=== PATIENT | male | born 1995 | race Caucasian/White ===

== ENCOUNTER 2017-07-03 16:46 | Outpatient (CLI) | payer OTHER | END 2017-07-03 16:47 | disposition critical access hospital (66) | LOC: EMS 16:46 | PROVIDERS: ATTEND Surgery | DX: R06.02 Shortness of breath (principal); R11.10 Vomiting, unspecified; L50.9 Urticaria, unspecified | CPT/HCPCS: A0425; A0427 ==

== ENCOUNTER 2017-07-03 17:13 | Emergency (ER) | payer OTHER ==
[2017-07-03] MEDS ORDERED: predniSONE 20 MG TABLET PO STA (17:17)
--- NOTE | 2017-07-03 17:22 | ED Physician Documentation ---
History of Present Illness - Stated complaint Stated Complaint: ALLERGIC RX/ ETOH - Chief complaint Chief Complaint: Allergic Rx - History obtained from History obtained from: Patient, Family, EMS - History of Present Illness Timing: How many hours ago (1) Pain level max: 0 Pain level now: 0 Improved by: benadryl Worsened by: nothing - Additonal information Additional information: Patient states that he turned 22 yesterday and has been drinking alcohol since that time. Today was drinking several "mixed drinks" with his friends when he developed urticaria. He then vomited and felt better. Was given 50 mg of Benadryl prior to arrival by EMS. States that the rash is now resolved. Not have any difficulty breathing or speaking. Does not have any prior history of allergic reactions. Review of Systems Constitutional: denies: Fever, Chills Ears: denies: Ear pain Nose: denies: Rhinorrhea / runny nose, Congestion Cardiac: denies: Chest pain / pressure Respiratory: denies: Cough, Wheezing GI: denies: Abdominal Pain, Nausea, Vomiting : denies: Dysuria Musculoskeletal: denies: Neck pain, Back pain Neurologic: denies: Headache PD PAST MEDICAL HISTORY - Past Medical History Past Medical History: No - Past Surgical History Past Surgical History: No - Present Medications Home Medications: Ambulatory Orders Medication Instructions Recorded Confirmed Prednisone 40 mg PO DAILY #6 tablet 07/03/17 - Allergies Allergies/Adverse Reactions: Allergies Allergy/AdvReac Type Severity Reaction Status Date / Time No Known Drug Allergies Allergy Verified 07/03/17 17:22 - Living Situation Living Situation: reports: With family Living Arrangement: reports: At home - Social History Does the pt smoke?: No Does the pt drink ETOH?: Yes Does the pt have substance abuse?: No - Family History Family history: reports: Non contributory PD ED PE NORMAL - Vitals Vital signs reviewed: Yes - General General: Alert and oriented X 3, No acute distress, Well developed/nourished - HEENT HEENT: PERRL, Moist mucous membranes, Pharynx benign - Neck Neck: Supple, no meningeal sign - Cardiac Cardiac: RRR - Respiratory Respiratory: No respiratory distress, Clear bilaterally, Other (No wheezing or stridor) - Abdomen Abdomen: Soft, Non tender, Non distended - Derm Derm: Warm and dry, No rash - Neuro Neuro: Alert and oriented X 3 - Psych Psych: Normal mood, Normal affect Results - Vitals Vitals: Vital Signs - 24 hr 07/03/17 07/03/17 17:20 18:32 Temperature 37 C 36.6 C Heart Rate 90 88 Respiratory 18 16 Rate Blood Pressure 147/108 H 149/85 H O2 Saturation 98 97 Oxygen O2 Source Room air PD MEDICAL DECISION MAKING - ED course Complexity details: re-evaluated patient, considered differential, d/w patient, d/w family ED course: Patient is a 22-year-old male who has been drinking alcohol since his 22st birthday yesterday. Was drinking mixed drinks today and appears to have had an allergic reaction with urticaria. Resolved with Benadryl. Given steroids as well. No recurrent symptoms in the emergency department. No respiratory distress. Patient is well-appearing, nontoxic. Afebrile. Family is comfortable taking him home and monitoring him there at this time. We will continue steroids for a few days. Patient and family counseled regarding signs and symptoms for which I believe and urgent re-evaluation would be necessary. Patient with good understanding of and agreement to plan and is comfortable going home at this time This document was made in part using voice recognition software. While efforts are made to proofread this document, sound alike and grammatical errors may occur. Departure - Departure Disposition: 01 Home, Self Care Clinical Impression: Allergic reaction Qualifiers: Encounter type: initial encounter Qualified Code(s): T78.40XA - Allergy, unspecified, initial encounter Condition: Good Instructions: ED Allergic Reaction General Other Follow-Up: your,doctor within 1 week [Other] Prescriptions: Prednisone 40 mg PO DAILY #6 tablet Comments: Take the steroids for the next 3 days. Return if you worsen. You can also use Benadryl at home as needed for rash. It is unclear what you are allergic to at this time, your doctor may choose to perform allergy testing on you. Discharge Date/Time: 07/03/17 18:32
[2017-07-03] MEDS ORDERED: predniSONE 20 MG TABLET ONE (17:29)
[2017-07-03 18:33] VITALS: BP 149/85
== END 2017-07-03 18:32 | disposition home or self-care (01) ==
LOC: ED 17:13
DX: T78.49XA Other allergy, initial encounter (principal); L50.9 Urticaria, unspecified; X58.XXXA Exposure to other specified factors, initial encounter
CPT/HCPCS: 99283; J7512